=== PATIENT | male | born 1955 | race Caucasian/White ===

== ENCOUNTER → 2020-11-09 | Outpatient (CLI) | payer OTHER ==
[~2020-11-09] MED LIST: ADVAIR 250-501 EACH INH; AVAPRO75 MG PO; COREG 3.125M3.125 MG PO; CRESTOR 10 MG T10 MG PO; DOXYCYCLINE HY100 MG PO; EPIPEN 2-P0.3 MG/0.3 IM; LOVAZA1 GM PO; MIRALAX17 GM PO; MUCINEX D ER 61 EACH PO; MULTIVITAMINS1 EAC1 PO; NITROSTAT0.4 MG SL; PATANOL OP SOLN5 ML EYEBOTH; SYNTHROID100 MCG PO
== END ==
LOC: KOH-I 14:57
DX: M54.50 Low back pain, unspecified (principal); M47.816 Spondylosis without myelopathy or radiculopathy, lumbar region
CPT/HCPCS: 72100

== ENCOUNTER → 2020-11-21 | Day surgery (SDC) | payer OTHER ==
[~2020-11-21] MED LIST changes: +ACIPHEX SPRINKLE5 MG PO; +BENICAR5 MG PO; +PROSCAR 5 MG TAB5 MG GT; +WIXELA 100-501 EACH INH
== END | disposition home or self-care (01) ==
LOC: OR 05:54
DX: K31.9 Disease of stomach and duodenum, unspecified (principal); K22.2 Esophageal obstruction; K22.4 Dyskinesia of esophagus; Q39.4 Esophageal web; K21.9 Gastro-esophageal reflux disease without esophagitis; K44.9 Diaphragmatic hernia without obstruction or gangrene; J44.9 Chronic obstructive pulmonary disease, unspecified; E78.5 Hyperlipidemia, unspecified; I10 Essential (primary) hypertension; E03.9 Hypothyroidism, unspecified; G47.00 Insomnia, unspecified; Z88.0 Allergy status to penicillin; Z88.1 Allergy status to other antibiotic agents; Z88.2 Allergy status to sulfonamides; Z88.8 Allergy status to other drugs, medicaments and biological substances; Z20.822 Contact with and (suspected) exposure to COVID-19
CPT/HCPCS: J2704; J7120